=== PATIENT | female | born 1945 | race Caucasian/White ===

== ENCOUNTER 2016-05-13 10:16 | Inpatient (IN) | payer MEDICARE ==
--- NOTE | 2016-05-12 11:30 | HP ---
DATE OF CLINIC: 05/05/2016 [place] : 1945 PLANNED PROCEDURE: Right Total Knee Arthroplasty DATE OF SURGERY: May 13, 2016 SURGEON: Panda Richard M.D. HISTORY OF PRESENT ILLNESS Santa Abad is a 70 year old female. * Medication list reviewed with patient allergy list reviewed with patient. Patient returns to the clinic today for a recheck of her right knee. She received a Synvisc injection and simultaneously was also having worsening right knee pain. Her Synvisc injections were stopped before her 2nd and 3rd injections were given. She was started on Indocin 1 week ago and also provided a Rx of some Tramadol. She returns to the clinic today for a recheck and reports there has been some improvement, but pyrotechnics press tender to stand and walk on and bend the knee. After discussion and review of treatment options, both operative and non-operative, she has elected to proceed with surgery and presents today preoperatively. CURRENT MEDICATION * *Supplement Miscellaneous as directed multivitamin, vitamin d, tumeric,, 0 days, 0 refills * Elidel 1 % Cream as directed...apply twice /day as needed, 30 days, 0 refills * Estrace 0.1 MG/GM Cream as directed Gabapentin6%, baclofen 2%, Cyclobenazprine 2%, diclofenac 3%, tetracaine 2% cream, 0 days, 0 refills * Estradiol 0.5 MG Tablet 1 once a day, 30 days, 0 refills * FLUoxetine HCl 40 MG Capsule 1 once a day, 90 days, 0 refills * Hydrocodone-Acetaminophen 5-325 MG Tablet as directed 1-2 po q 4-6 h prn for pain..., 30 days, 0 refills * Ibuprofen 200 MG Tablet as needed 0 days, 0 refills * Progesterone 100 MG Tablet 1 once a day, 90 days, 3 refills * Progesterone 100 MG Tablet 1 once a day 0 days, 0 refills PAST MEDICAL/SURGICAL HISTORY Reported: Medical: History of Arthritis, Depression, and Hypertension. Surgical / Procedural: Surgical / procedural history R knee arthroscopy 2000 and replacement of a hip Bilat replacement . Surgical: * Total hip replacement R THR 2001 ... L THR 2002 SOCIAL HISTORY Behavioral: Daily coffee consumption, daily tea consumption, and non-smoker never smoked. Smoking status: Never smoker. Alcohol: Alcohol 5 glasses of wine per week and alcohol use wine consumption. Home Environment: Lives with spouse DEMI. Marital: Currently and single. 3 children. Long h/o abbey knee/leg pain. Improved somewhat with abbey hip replacement. ALLERGIES * Bactrim Reaction: Nausea/Vomiting/Diarrhea FAMILY HISTORY 3 children Family medical history Mother - heart disease Father - kidney disease Brother - heart disease, RA Sister - HTN REVIEW OF SYSTEMS No recent constitutional symptoms to include fevers and chills. No cardiovascular symptoms to include chest pain or palpitations. No respiratory symptoms to include shortness of breath or recent infections. PHYSICAL FINDINGS * Vitals taken 05/05/2016 01:25 pm BP-Sitting L 146/79 mmHg BP Cuff Size Regular Pulse Rate-Sitting 61 bpm Temp-Oral 98.1 F Height 66.5 in Weight 173 lbs Body Mass Index 27.5 kg/m2 Body Surface Area 1.89 m2 Pain Level 3 Ears, Nose, Throat: * ENT: normal. Lungs: * Clear to auscultation. Cardiovascular: Heart Rate and Rhythm: * Normal. Abdomen: * Normal. Neurological: Motor: * Dominant Hand = Right Hand. Patient is alert and oriented and in no acute distress. She ambulates in on her own with a walker. Right knee exam: No bruising, swelling or deformity. No erythema, increased warmth or sign of infection. Patient has tenderness along the medial femoral tibial jointline as well as around the patellofemoral joint. Knee ROM today is nearly straight to flexion of 100 degrees. IMAGING Review of her last set of knee films shows signs of severe right knee osteoarthritis. ASSESSMENT Right knee osteoarthritis. PREVIOUS TESTS * Test: URINALYSIS WITH MICROSCOPIC Report Date: 04/29/2016 EPITHELIAL CELL 10-15 WBC 0-1 GLUCOSE NEGATIVE BACTERIA 1+ PH,URINE 5.0 SPEC. GRAVITY 1.025 KETONE TRACE NITRITE NEGATIVE RBC 0 BLOOD NEGATIVE BILIRUBIN NEGATIVE APPEARANCE HAZY PROTEIN TRACE COLOR DARK YELLOW LEUK ESTERASE TRACE UROBILINOGEN 1 mg/dL * Test: PROTHROMBIN TIME Report Date: 04/29/2016 PROTIME 9.7 s INR 0.92 * Test: PARTIAL THROMBOPLASTIN TIME Report Date: 04/29/2016 APTT 27.0 s * Test: CBC NO DIFF Report Date: 04/29/2016 WBC 5.7 10*3/mL MCV 90.9 fL RBC 4.92 10*6/uL MCH 29.1 pg MCHC 32.0 g/dL Low RDW 13.2 % PLATELET COUNT 311 10*3/mL HCT 44.7 % HGB 14.3 g/L * Test: COMPREHENSIVE METABOLIC PANEL Report Date: 04/29/2016 ALT/SGPT 16 U/L ALBUMIN 4.1 g/dL ALB/GLOB RATIO 1.5 BUN 23 mg/dL BUN/CREAT RATIO 21 High CALCIUM 10.6 mg/dL High GLUCOSE 101 mg/dL High CREATININE 1.1 mg/dL SODIUM 139 meq/L POTASSIUM 4.5 meq/L CHLORIDE 103 meq/L CARBON DIOXIDE 29 meq/L ANION GAP 12 meq/L TOT PROTEIN 6.9 g/dL GLOBULIN 2.8 g/dL BILI,TOTAL 0.5 mg/dL AST/SGOT 19 U/L ALK PHOSPHATASE 73 U/L GFR 49 Low * Test: MRSA SCREEN Report Date: 04/30/2016 MRSA SCREEN NEGATIVE * Test: MSSA SCREEN Report Date: 04/30/2016 MSSA SCREEN NEGATIVE FOR STAPHYLOCOCCUS AUREUS THERAPY * Patient fall risk screen positive. * Patient eligible for fall risk assessment. * Patient received fall risk assessment. PLAN * Unilateral primary osteoarthritis, right knee OxyCONTIN 10 MG T12A, Take 1 tablet by mouth every 12 hours for baseline pain control, 10 days, 0 refills OxyCODONE HCl 5 MG TABS, Take 1-2 tablets by mouth every 4 hours as needed for severe breakthrough pain, 14 days, 0 refills TraMADol HCl 50 MG TABS, Take 1-2 tablets by mouth every 6 hours as needed for moderate breakthrough pain, 14 days, 0 refills * Total knee arthroplasty -Right CARE TEAM Yovana Diop MD [facility] SURGICAL CONSENT We have discussed surgical options including right TKA and non-operative management. The patient was counseled in detail regarding the diagnosis, treatment options available, prognosis of each treatment option and the potential risks and complications. The risks of surgery include, but are not limited to, anesthetic , neurovascular complications, pulmonary embolism, deep vein thrombosis, wound dehiscence, failure of any or all of the discussed procedures, infection of the joint or surrounding soft tissue, need for revision surgery, chronic pain, limitations in activities of daily living, inability to return to work, and loss of normal range of motion or functional use of the extremity. There is the possibility of failure over time that may require additional operative or - not mentioned here and would still like to proceed. The patient is aware of and understands these risks, and wishes to proceed with the proposed surgical procedure and other procedures as indicated at the time of surgery. We will have the patient see their PCP for a preoperative medical risk assessment. The preoperative instructions were reviewed with the patient and all questions were answered. PB/sg
[~2016-05-13 10:16] MED LIST: BUPIVACAINE 0.25% (MDV) 20 ML in SODIUM CHLORIDE 0.9% FLUSH 20 ML IF PRN; BUPIVACAINE 0.25% (MDV) 24 ML, MORPHINE SULFATE 8 MG, EPINEPHRINE 0.3 MG in SODIUM CHLO... IF PRN; CEFAZOLIN SODIUM 2 GRAM PREMIX 100 ML IV PRN; CELECOXIB 200 MG CAPSULE PO ONE; CLONIDINE HCL 0.1 MG/24 HR (7 DAY PATCH) TD SCH; FAMOTIDINE 20 MG TABLET PO ONE; GABAPENTIN 600 MG TABLET PO ONE; ONDANSETRON 4 MG/2ML 2 ML VIAL IV ONE; OXYCODONE HCL 10 MG TAB.SR PO ONE; POLYMYXIN B SULFATE 500,000 UNITS, BACITRACIN 25,000 UNITS in SODIUM CHLORIDE 3 L IRRIG... IR PRN; TRAMADOL HCL 50 MG TABLET PO ONE; TRANEXAMIC ACID 1,000 MG in SODIUM CHLORIDE 0.9% 100 ML IV PRN
[2016-05-13] MEDS ORDERED: LACTATED RINGERS 1,000 ML ONE (10:18)
[2016-05-13] MEDS ORDERED: IV START KIT ONE (10:19)
[2016-05-13] MEDS ORDERED: CEFAZOLIN SODIUM 2 GRAM PREMIX 100 ML IV ONE (10:19)
[2016-05-13] MEDS ORDERED: ROPIVACAINE 0.2% 20 ML VIAL ONE ×2 (10:39→11:16)
[2016-05-13] MEDS ORDERED: NERVE BLOCK PROCEDURAL TRAY 1 EACH ONE ×2 (10:39→11:16)
[2016-05-13] MEDS ORDERED: SPINAL PROCEDURAL TRAY 1 EACH ONE ×2 (10:39→11:16)
[2016-05-13] MEDS ORDERED: TRAMADOL HCL 50 MG TABLET ONE (10:54)
[2016-05-13] MEDS ORDERED: OXYCODONE HCL 10 MG TAB.SR PO ONE (10:54)
[2016-05-13] MEDS ORDERED: ONDANSETRON 4 MG/2ML 2 ML VIAL ONE ×2 (10:54→13:49)
[2016-05-13] MEDS ORDERED: FAMOTIDINE 20 MG TABLET ONE (10:54)
[2016-05-13] MEDS ORDERED: CELECOXIB 200 MG CAPSULE ONE (10:55)
[2016-05-13] MEDS ORDERED: GABAPENTIN 600 MG TABLET ONE (10:55)
[2016-05-13] MEDS ORDERED: CLONIDINE HCL 0.1 MG/24 HR (7 DAY PATCH) TD ONE (10:55)
[2016-05-13] MEDS ORDERED: MIDAZOLAM HCL 5 MG/5 ML VIAL ONE (11:11)
[2016-05-13] MEDS ORDERED: FENTANYL 100 MCG/2 ML VIAL ONE (11:11)
[2016-05-13] MEDS ORDERED: PROPOFOL 20 ML IV ONE ×4 (11:11→14:05)
[2016-05-13] MEDS ORDERED: HYDROMORPHONE HCL 2 MG/ML SYRINGE ONE (13:33)
--- NOTE | 2016-05-13 14:27 | PCMBPN ---
Brief Post Op Note: Date of Procedure: 05/13/16 Start Time: 1230 Preoperative Diagnosis: 1. right knee osteoarthritis Postoperative Diagnosis: 1. Same Procedure: right total knee arthroplasty Surgeon: Panda Richard MD Assist: Nabil Uriarte PA-C Anesthesia: Ren Chapman CRNA Findings: as above Condition: stable to PACU Complications: none IV Fluids: 1500 mLs of LR Urine Output: 200 mLs Estimated Blood Loss: 250 mLs Tourniquet Time: 28 min at 250 mm Hg Specimens: none Implants: Depuy Attune 6N PS femur, 5 RP tibia, 5mm insert, and 32 mm anatomic patella Drains: N/A Panda Richard MD
[2016-05-13] MEDS ORDERED: FENTANYL 100 MCG/2 ML VIAL IV PRN (14:31)
[2016-05-13] MEDS ORDERED: PROMETHAZINE HCL 25 MG/ML VIAL IM PRN (14:31)
[2016-05-13] MEDS ORDERED: MORPHINE SULFATE 4 MG/ML SYRINGE IV PRN (14:31)
[2016-05-13] MEDS ORDERED: LACTATED RINGERS 1,000 ML IV SCH (14:45)
[2016-05-13] MEDS: ON-Q PUMP/ROPIVACAINE 0.2% 450 ML in PREMIX BAG 1 EACH NB PRN (14:54)
[2016-05-13 15:05] VITALS: BMI 27.5
[2016-05-13] MEDS ORDERED: TRAMADOL HCL 50 MG TABLET PO PRN (15:22)
[2016-05-13] MEDS ORDERED: CALCIUM CARBONATE 500 MG TAB.CHEW PO PRN (15:22)
[2016-05-13] MEDS ORDERED: ONDANSETRON 4 MG/2ML 2 ML VIAL IV PRN (15:22)
[2016-05-13] MEDS ORDERED: HYDROXYZINE PAMOATE 25 MG CAPSULE PO PRN (15:22)
[2016-05-13] MEDS ORDERED: HYDROMORPHONE HCL 0.5 MG/0.5 ML SYRINGE IV PRN (15:22)
[2016-05-13] MEDS ORDERED: KETOROLAC TROMETHAMINE 30 MG/ML 1 ML VIAL IV PRN (15:22)
[2016-05-13] MEDS ORDERED: TRAZODONE HCL 50 MG TABLET PO PRN (15:22)
--- NOTE | 2016-05-13 15:50 | RAD ---
HISTORY: Postop right TKR COMPARISON: Plain films 09/24/2014 TECHNIQUE: two of the right knee FINDINGS: A total knee arthroplasty is present. Hardware is intact with out signs of failure or loosening. There is no fracture or dislocation. Postoperative bandaging and skin catalina are present. Soft tissue gas is also noted. IMPRESSION: Intact hardware without fracture or dislocation. Satisfactory postoperative exam.
[2016-05-13] MEDS ORDERED: PNEUMOCOCCAL 23-VAL P-SAC VAC 0.5 ML VIAL IM V ONE (16:54)
[2016-05-13] MEDS: ACETAMINOPHEN 500 MG TABLET PO SCH ×3 (17:06→20:34)
[2016-05-13] MEDS ORDERED: PUMP TUBING ONE (17:33)
[2016-05-13] MEDS: D5 1/2NS with 20 mEq KCL 1,000 ML IV SCH (17:39)
[2016-05-13] MEDS: KETOROLAC TROMETHAMINE 15 MG/ML VIAL IV PRN (17:40)
[2016-05-13] MEDS: CEFAZOLIN SODIUM 2 GRAM DUPLEX 2 G in Premix (D5W) 50 ml 1 EACH IV SCH (20:07)
[2016-05-13] MEDS: OXYCODONE HCL 10 MG TAB.SR PO SCH (20:07)
[2016-05-13] MEDS: ASCORBIC ACID 500 MG TABLET PO SCH (20:07)
[2016-05-13] MEDS: DOCUSATE SODIUM 100 MG CAPSULE PO SCH (20:07)
[2016-05-13] MEDS: PROGESTERONE,MICRONIZED 100 MG CAPSULE PO SCH (20:08)
[2016-05-14] MEDS: ACETAMINOPHEN 500 MG TABLET PO SCH ×5 (02:17→20:54)
[2016-05-14] MEDS: KETOROLAC TROMETHAMINE 15 MG/ML VIAL IV PRN ×2 (02:17→10:07)
[2016-05-14] MEDS: D5 1/2NS with 20 mEq KCL 1,000 ML IV SCH ×3 (02:17→16:01)
[2016-05-14] MEDS: CEFAZOLIN SODIUM 2 GRAM DUPLEX 2 G in Premix (D5W) 50 ml 1 EACH IV SCH (05:57)
[2016-05-14] MEDS: ON-Q PUMP/ROPIVACAINE 0.2% 450 ML in PREMIX BAG 1 EACH NB PRN (06:33)
[2016-05-14 07:09] LABS: HEMOGLOBIN 10.9 gm/l (12.0-16.0); MEAN CELL VOLUME 91.9 fl (81.0-99.0); MEAN CORPUSCULAR HEMOGLOBIN 29.5 pg (27.0-31.0); MEAN CORPUSCULAR HGB CONC 32.1 g/dl (33.0-37.0); RED CELL DISTRIBUTION WIDTH 13.7 % (11.5-14.5)
[2016-05-14 07:31] LABS: CALCIUM 8.8 mg/dL (8.6-10.3)
--- NOTE | 2016-05-14 08:20 | PDOC43 ---
- Subjective Subjective: Reports Pain Tolerable, Denies Chest Pain, Denies Shortness of Breath, Denies Nausea - Objective Vital Signs Temperature 96.9 F 05/14/16 07:11 Pulse Rate 59 05/14/16 07:11 Respiratory Rate 16 05/14/16 07:11 Blood Pressure 116/45 05/14/16 07:11 O2 Saturation by Pulse Oximetry 100 05/14/16 07:11 Oxygen Delivery Method Nasal Cannula Oxygen Flow Rate 2 Laboratory 05/14/16 06:20 05/14/16 06:20 05/14/16 06:20 RBC 3.70 L MCHC 32.1 L Anion Gap 7 L Active Medication Orders Category Date Time Status Acetaminophen [Tylenol] Med 05/13/16 15:22 Active 1,000 mg PO Q6H Ascorbic Acid [Vitamin C] Med 05/13/16 21:00 Active 500 mg PO BID Aspirin (Enteric Coated) [Ecotrin] Med 05/14/16 09:00 Active 325 mg PO DAILY Bisacodyl [Dulcolax] Med 05/16/16 14:21 Active 10 mg [place] DAILY PRN Calcium Carbonate [Tums] Med 05/13/16 15:22 Active 1,000 - 2,000 mg PO Q2H PRN D5 1/2NS with 20 mEq KCL [D51/2NS with 20 mEq KCL] 1, Med 05/13/16 15:22 Active 000 ml IV 125 mls/hr Docusate Sodium [Colace] Med 05/13/16 21:00 Active 100 mg PO BID Estradiol [Estrace] Med 05/14/16 09:00 Active 0.5 mg PO DAILY Fluoxetine HCl [Prozac] Med 05/14/16 09:00 Active 40 mg PO DAILY Hydromorphone HCl [Dilaudid] Med 05/13/16 15:22 Active 0.5 mg IV Q1H PRN Hydroxyzine Pamoate [Vistaril] Med 05/13/16 15:22 Active 25 - 50 mg PO Q4H PRN Ketorolac Tromethamine [Toradol] Med 05/13/16 16:18 Active 15 mg IV Q6H PRN Magnesium Hydroxide [Milk of Magnesia] Med 05/14/16 14:21 Active 30 ml PO DAILY PRN Multivitamins [One-A-Day] Med 05/14/16 09:00 Active 1 tab PO DAILY On-Q Pump/Ropivacaine 0.2% 450 ml Med 05/13/16 14:31 Active Premix Bag [Premix Fluid] 1 each NB Q50H Ondansetron 4 mg/2ml Vial [Zofran] Med 05/13/16 15:22 Active 4 - 6 mg IV Q6H PRN Oxycodone HCl [Roxicodone] Med 05/13/16 15:22 Active 5 - 10 mg PO Q4H PRN Oxycodone Sr [Oxycontin] Med 05/13/16 21:00 Active 10 mg PO Q12HR Progesterone,Micronized [Prometrium] Med 05/13/16 20:00 Active 100 mg PO QPM Promethazine HCl [Phenergan] Med 05/13/16 14:31 Active 12.5 - 25 mg IM X1 PRN Remove Patch Med 05/14/16 14:21 Once 1 each TD X1 ONE Sodium Chloride 0.9% Flush [Normal Saline 10ml Flush] Med 05/13/16 15:22 Active 10 - 50 ml IV PRN PRN Sodium Chloride 0.9% Flush [Normal Saline 10ml Flush] Med 05/13/16 17:00 Active 10 ml IV Q8HR Tramadol HCl [Ultram] Med 05/13/16 15:22 Active 50 mg PO Q6H PRN Trazodone HCl [Desyrel] Med 05/13/16 15:22 Active 25 mg PO BEDTIME PRN Vitamin D3 Med 05/14/16 09:00 Active 6,000 units PO DAILY Intake and Output 05/12/16 05/13/16 05/14/16 23:59 23:59 23:59 Intake Total 80 1479 Output Total 200 325 Balance -120 1154 General: Afebrile Lungs: Normal Air Movement Skin: Normal Color, Warm, Dry - Right Lower Extremity Incision: Dressing Clean/Dry/Intact, No Dressing Saturated, No Rash Motor: Extensor Hallucis Longus: 4/5, Tibialis Anterior: 4/5, Gastrocnemius: 4/5 Gross Sensation to Light Touch: Present: Deep Peroneal Nerve, Superficial Peroneal Nerve - Problems (1) Status post total knee replacement, right Status: Acute - Additional Comments POD1 Right TKA. Doing well this morning. 1. Physical Therapy: WBAT with FWW. 2. Pain Control: Multimodal pain control as needed. 3. DVT Prophylaxis: ASA 325mg, mobilization. 4. Disposition: Plan for discharge home Wednesday. 5. Medical Issues: No new.
[2016-05-14] MEDS: ESTRADIOL 0.5 MG TABLET PO SCH (08:51)
[2016-05-14] MEDS: OXYCODONE HCL 5 MG TABLET PO PRN ×5 (08:52→23:17)
[2016-05-14] MEDS: OXYCODONE HCL 10 MG TAB.SR PO SCH ×2 (08:52→20:54)
[2016-05-14] MEDS: DOCUSATE SODIUM 100 MG CAPSULE PO SCH ×2 (08:52→20:53)
[2016-05-14] MEDS: ASCORBIC ACID 500 MG TABLET PO SCH ×2 (08:52→20:53)
[2016-05-14] MEDS: VITAMIN D3 1,000 UNITS CAP.LIQ PO SCH (08:52)
[2016-05-14] MEDS: MULTIVITAMINS 1 TAB TABLET PO SCH (08:52)
[2016-05-14] MEDS: ASPIRIN (ENTERIC COATED) 325 MG TABLET.EC PO SCH (08:52)
[2016-05-14] MEDS: FLUOXETINE HCL 20 MG CAPSULE PO SCH (08:53)
[2016-05-14] MEDS ORDERED: REMOVE PATCH 1 EACH UNIT TD SCH (10:00)
[2016-05-14] MEDS ORDERED: MAGNESIUM HYDROXIDE 30 ML UDCUP PO PRN (14:21)
[2016-05-14] MEDS ORDERED: REMOVE PATCH 1 EACH UNIT TD ONE (14:21)
[2016-05-14] MEDS: PROGESTERONE,MICRONIZED 100 MG CAPSULE PO SCH (20:55)
[2016-05-14] MEDS ORDERED: BLISTEX LIPSTICK 1 EACH TP PRN (21:20)
[2016-05-15] MEDS: ACETAMINOPHEN 500 MG TABLET PO SCH ×2 (03:41→09:04)
[2016-05-15] MEDS: OXYCODONE HCL 5 MG TABLET PO PRN ×3 (03:41→13:28)
[2016-05-15] MEDS: D5 1/2NS with 20 mEq KCL 1,000 ML IV SCH ×2 (04:57→09:03)
[2016-05-15 06:47] LABS: HEMATOCRIT 29.6 % (37.0-47.0); HEMOGLOBIN 9.6 gm/l (12.0-16.0)
[2016-05-15] MEDS: VITAMIN D3 1,000 UNITS CAP.LIQ PO SCH (09:03)
[2016-05-15] MEDS: FLUOXETINE HCL 20 MG CAPSULE PO SCH (09:04)
[2016-05-15] MEDS: ASPIRIN (ENTERIC COATED) 325 MG TABLET.EC PO SCH (09:04)
[2016-05-15] MEDS: MULTIVITAMINS 1 TAB TABLET PO SCH (09:04)
[2016-05-15] MEDS: ESTRADIOL 0.5 MG TABLET PO SCH (09:04)
[2016-05-15] MEDS: ASCORBIC ACID 500 MG TABLET PO SCH (09:04)
[2016-05-15] MEDS: DOCUSATE SODIUM 100 MG CAPSULE PO SCH (09:04)
[2016-05-15] MEDS: OXYCODONE HCL 10 MG TAB.SR PO SCH (09:04)
[2016-05-15 11:40] VITALS: BP 119/60
--- NOTE | 2016-05-15 13:00 | PDOC43 ---
- Subjective Findings: Doing well this AM, tolerating meds, diet, and therapy. Subjective: Reports Flatus, Reports Pain Tolerable, Denies Chest Pain, Denies Shortness of Breath, Denies Nausea, Denies Vomiting, Denies Fever - Objective Vital Signs Temperature 98.2 F 05/15/16 07:46 Pulse Rate 66 05/15/16 11:30 Respiratory Rate 16 05/15/16 07:46 Blood Pressure 119/60 05/15/16 11:30 O2 Saturation by Pulse Oximetry 97 05/15/16 11:30 Oxygen Delivery Method Room Air Oxygen Flow Rate 0 Laboratory 05/15/16 06:15 05/14/16 06:20 Active Medication Orders Category Date Time Status Acetaminophen [Tylenol] Med 05/13/16 15:22 Active 1,000 mg PO Q6H Ascorbic Acid [Vitamin C] Med 05/13/16 21:00 Active 500 mg PO BID Aspirin (Enteric Coated) [Ecotrin] Med 05/14/16 09:00 Active 325 mg PO DAILY Bisacodyl [Dulcolax] Med 05/16/16 14:21 Active 10 mg AR DAILY PRN Calcium Carbonate [Tums] Med 05/13/16 15:22 Active 1,000 - 2,000 mg PO Q2H PRN D5 1/2NS with 20 mEq KCL [D51/2NS with 20 mEq KCL] 1, Med 05/13/16 15:22 Active 000 ml IV 125 mls/hr Docusate Sodium [Colace] Med 05/13/16 21:00 Active 100 mg PO BID Estradiol [Estrace] Med 05/14/16 09:00 Active 0.5 mg PO DAILY Fluoxetine HCl [Prozac] Med 05/14/16 09:00 Active 40 mg PO DAILY Hydromorphone HCl [Dilaudid] Med 05/13/16 15:22 Active 0.5 mg IV Q1H PRN Hydroxyzine Pamoate [Vistaril] Med 05/13/16 15:22 Active 25 - 50 mg PO Q4H PRN Lip [place] [Blistex] Med 05/14/16 21:20 Active 1 each TP PRN PRN Magnesium Hydroxide [Milk of Magnesia] Med 05/14/16 14:21 Active 30 ml PO DAILY PRN Multivitamins [One-A-Day] Med 05/14/16 09:00 Active 1 tab PO DAILY Ondansetron 4 mg/2ml Vial [Zofran] Med 05/13/16 15:22 Active 4 - 6 mg IV Q6H PRN Oxycodone HCl [Roxicodone] Med 05/13/16 15:22 Active 5 - 10 mg PO Q4H PRN Oxycodone Sr [Oxycontin] Med 05/13/16 21:00 Active 10 mg PO Q12HR Progesterone,Micronized [Prometrium] Med 05/13/16 20:00 Active 100 mg PO QPM Promethazine HCl [Phenergan] Med 05/13/16 14:31 Active 12.5 - 25 mg IM X1 PRN Sodium Chloride 0.9% Flush [Normal Saline 10ml Flush] Med 05/13/16 15:22 Active 10 - 50 ml IV PRN PRN Sodium Chloride 0.9% Flush [Normal Saline 10ml Flush] Med 05/13/16 17:00 Active 10 ml IV Q8HR Tramadol HCl [Ultram] Med 05/13/16 15:22 Active 50 mg PO Q6H PRN Trazodone HCl [Desyrel] Med 05/13/16 15:22 Active 25 mg PO BEDTIME PRN Vitamin D3 Med 05/14/16 09:00 Active 6,000 units PO DAILY Intake and Output 05/13/16 05/14/16 05/15/16 23:59 23:59 23:59 Intake Total 80 2424 250 Output Total 200 1625 550 Balance -120 799 -300 General: Afebrile, No Acute Distress HEENT: EOMI Lungs: Normal Air Movement Abdomen: Soft Skin: Normal Color, Warm, Dry Neurological: Grossly Intact, Alert, Oriented x 4, Normal Speech Psych/Mental Status: Normal Affect, Normal Mood - Right Lower Extremity Incision: Dressing Clean/Dry/Intact, Well Approximated, [place] Intact, No Drainage, No Erythema, No Rash Motor: Extensor Hallucis Longus: 5/5, Tibialis Anterior: 5/5, Gastrocnemius: 5/5 , Peroneals: 5/5, Quadriceps: 5/5 Gross Sensation to Light Touch: Present: Deep Peroneal Nerve, Superficial Peroneal Nerve, Medial Plantar Nerve, Lateral Plantar Nerve, Sural Nerve, Saphenous Nerve Capillary Refill: < 3 Seconds Motion: 0-80 - Problems (1) Status post total knee replacement, right Status: Acute - Additional Comments POD2 Right TKA. Doing well this morning. 1. Physical Therapy: WBAT with FWW. 2. Pain Control: Multimodal pain control as needed. 3. DVT Prophylaxis: ASA 325mg, mobilization. 4. Disposition: D/c home today. 5. Medical Issues: No new. Panda Richard MD
--- NOTE | 2016-05-15 13:02 | PDOC5 ---
ADMIT DATE: 05/13/16 DISCHARGE DATE: 05/15/16 ADMISSION DIAGNOSES: right knee osteoarthritis PROCEDURES PERFORMED THIS HOSPITALIZATION: right total knee arthroplasty SURGEON:Panda Richard MD CONSULTATIONS: PT/OT/Care Mgmt BRIEF HISTORY:This is a 70 year old female patient with activity-limiting right knee osteoarthritis which has failed to respond adequately to a course of nonoperative measures. After a discussion of the risks, benefits, and alternatives of ongoing therapies, patient elected to proceed with right total knee arthroplasty. The patient underwent standard preoperative clearance and education, and presented to the hospital on the scheduled date for surgery. BRIEF HOSPITAL COURSE: Patient tolerated the procedure without complication and was admitted postoperatively for observation, pain control, and rehabilitation. Patient had an uncomplicated hospital course; see daily notes for details. On POD#2 patient met all criteria for discharge and was discharged home with family assistance. Follow-up appointments for outpatient Physical Therapy and Orthopedics were provided at the time of discharge. Patient restarted preoperative medications, and received prescriptions for postoperative pain medications, a stool softener, and DVT prophylaxis. Panda Richard MD - Discharge Diagnosis (1) Status post total knee replacement, right Status: Acute - Discharge Plan Additional Instructions: PROCEDURE: Right total knee arthroplasty (replacement) 1.) Dressings: may remove dressings on POD#4 and shower normally, let water run over incision and pat dry, but do not submerge or scrub incision. Cover with clean dressing and then change dressing every 2 days until completely dry. 2.) Activity: may bear weight as tolerated with assistive device as needed, brace in place at all times for first 6 weeks. Outpatient PT as previously scheduled. Daily exercises as instructed by PT. 3.) Medications: a.) Oxycontin: long-acting pain medication taken morning and evening for 10 days, no refills b.) Tramadol: as-needed pain medication for mild to moderate breakthrough pain (call for refills 3-4 days before running out) c.) Oxycodone: as-needed pain medication for severe breakthrough pain (call for refills 3-4 days before running out) d.) Aspirin: blood thinner to reduce risk of clots, 325 mg taken daily for 30 days e.) Colace: stool softener to help prevent constipation, taken twice a day as long as you are on narcotics; if you have not had a bowel movement by Nate , get [id number] Magnesium Citrate from [employer] or [employer], and use per instructions twice a day until constipation resolves. 4.) Followup: May 25 at 1:45 PM with my PA, Nabil Uriarte at [facility]. Call our office to confirm appt time and location. 5.) Questions: call my office with any questions or concerns. Go to ED or call 911 for any acute changes in health status or emergencies. Panda Richard MD Follow-Up: Physical Elliott Uribe [Other] - 05/18/16 5:00 pm Lee Uriarte PA [Physician Office Assistant] - 05/25/16 1:45 pm
--- NOTE | 2016-05-15 13:50 | OP ---
Santa REYES : 1945 [id number] DATE OF SURGERY: May 13, 2016 PREOPERATIVE DIAGNOSIS: Right knee osteoarthritis. POSTOPERATIVE DIAGNOSIS: Right knee osteoarthritis. PROCEDURE PERFORMED: RIGHT TOTAL KNEE ARTHROPLASTY. SURGEON: Panda Richard M.D. GATE ATTENDANT: Lee Uriarte P.A.-C. SPECIMENS: No material was sent to the laboratory. ESTIMATED BLOOD LOSS: 250 mL. INTRAVENOUS FLUIDS: 1500 mL of crystalloid. URINE OUTPUT: 200 mL. TOURNIQUET TIME: 28 minutes at 300 mmHg. IMPLANTS: DePuy Attune size 6 narrow posterior stabilized femur, size 5 rotating platform tibia, 5 mm insert and a 32 mm patella DRAINS: No drains. INDICATIONS: This is a 70-year-old female with history and physical exam and radiographic findings consistent with right knee osteoarthritis. The patient has undergone a course of nonoperative measures without adequate relief of their symptoms. They desire definitive management in the form of a total knee arthroplasty. Risks, benefits and alternatives were discussed at length with the patient and they have elected to proceed. Preoperative clearances were performed and the patient was scheduled for surgery at the first available convenience. DESCRIPTION OF PROCEDURE: The patient was identified in the preoperative holding area where they were marked with indelible marker by the operating surgeon. The patient underwent ultrasound guided adductor canal block by the anesthesia provider. Patient was then taken to the operating room where they underwent a spinal anesthetic and was positioned supine on the operating room table. All bony prominences were padded and a well padded pre-calibrated nonsterile tourniquet was placed on the right upper thigh. Patient received perioperative antibiotics. The patient was prepped and draped in the usual sterile fashion for surgery. An operative time out was performed and confirmed by all members of the operative team. The leg was elevated and exsanguinated using an Esmarch bandage and the tourniquet was inflated at 300 mmHg. A standard anterior approach to the knee was utilized. Dissection was carried down to the fascia overlying the quadriceps and patellar tendons. A medial peripatellar arthrotomy was created. The infrapatellar and suprapatellar fat pads were excised along with medial and lateral menisci and the ACL and PCL. At this point the tourniquet was deflated. Retractors were placed to protect the collateral ligaments and the patella was slid laterally. The [employer] guide for the femur was brought onto the field and pinned in place. This was exchanged for our distal femoral cut block. We confirmed our resection levels and then made the resection with an oscillating saw. The knee was hyperflexed and the [place] retractor was placed to deliver the tibia from under the femur. The TruMatch guide for the tibia was placed. Alignment was double checked with a set of drop rods. The guide was pinned in place and then exchanged for the proximal tibial cut guide. The resection level was again confirmed and the proximal tibial resection was made with an oscillating saw and completed with an osteotome and the proximal tibial resection piece was excised from the knee. At this point the retractors were removed and the knee was taken into extension and our extension block was checked and found to be satisfactory with a 5 mm ivan. We returned our attention to the femur, pinning the 4-in-[address] using the previously drilled pins from the [employer]Match guide. We double checked our alignment here as well as our flexion space and we were satisfied with the position of the block. Anterior, posterior and chamfer cuts were made and all bony pieces were excised. The knee was taken into hyperflexion and posterior osteophytes were removed using an osteotome and a curette. Finally, the tibia was sized with a base plate, drilled and punched and then a trial tibia was placed. The box cut guide for the femur was pinned in place and our box cut for the posterior stabilized femoral component was made and then a trial femur was placed. The trial 6 mm insert was placed and the knee was taken through a range of motion. It was found to be stable in all planes and to have appropriate extension and flexion. The patella was everted and held with two towel clips. Its thickness was measured to 24 mm initially. It was resected back using a freehand technique to 12 mm thick and sized for a 32 mm patellar button. The peg holes were drilled and a trial patella was placed. The knee was taken through a range of motion. The patella was found to track midline with a no hands technique. At this point all trial implants were removed from the knee. The posterior capsule was inspected and it was confirmed that there were no significant bleeders. Then knee was elevated and exsanguinated using an Esmarch bandage and the tourniquet was reinflated. Cement was mixed on the back table while we performed our first posterior capsular injection and then copiously irrigated the bony surfaces with sterile saline. Our final implants were cemented in place and all excess cement was removed from the knee. The knee was held in extension with a clamp on the patella while the cement dried. A final inspection was made of the knee after the cement was dry and the tourniquet was deflated. There were no significant bleeders and no residual cement or bony bodies within the knee. The knee was once again copiously irrigated with sterile saline and then a closure was performed using #0 Quill for the capsule, #2-0 Vicryl for the subcutaneous tissues and catalina in the skin. A sterile dressing of Xeroform, fluffs, ABD's, web roll and an LORENZO bandage was applied. The drapes were removed. The patient was awakened from anesthesia. Patient was then transferred to a stretcher and taken postoperatively to the post anesthesia care unit in stable condition. There were no observed intraoperative complications during this procedure. Job [id number] Cc: [place]dipak Felipe
[2016-05-16] MEDS ORDERED: BISACODYL 10 MG SUP PR PRN (14:21)
== END 2016-05-15 13:44 | disposition home or self-care (01) | DRG 470 ==
LOC: OR 10:16 → MS 15:48
PROVIDERS: ADMIT Orthopaedic Surgery; ATTEND Orthopaedic Surgery
PROC: 0SRC0J9 Replacement of Right Knee Joint with Synthetic Substitute, Cemented, Open Approach (ICD-10-PCS; principal; 2016-05-13)
DX: M17.11 Unilateral primary osteoarthritis, right knee (principal); F32.9 Major depressive disorder, single episode, unspecified; I10 Essential (primary) hypertension